=== PATIENT | male | born 1980 | race Caucasian/White ===

== ENCOUNTER 2024-02-09 15:02 | Outpatient (CLI) | payer OTHER, SELFPAY ==
--- NOTE | ~2024-02-09 | MR_ITS ---
EXAMINATION: MR foot RT wo con DATE: 02/09/2024 15:51 INDICATION: Gout with pain, erythema and swelling at the right great toe TECHNIQUE: Magnetic resonance imaging (MRI) of the right fore/mid foot was performed without intraven ous contrast. Sequences included sagittal T1-weighted FSE, sagittal fluid sensitive FSE STIR, coronal PD-weighted FS FSE, coronal T1-weighted FSE, axial PD-weighted FS FSE, and axial PD-weighted FSE. COMPARISON: None FINDINGS: Bone alignment is normal. No fracture. Typical pattern of mild polyarticular osteoarthritis at the fi rst metatarsophalangeal and a few tarsometatarsal and interphalangeal joints. There is marrow edema c entered about the medial aspect of the head of the first proximal phalanx with suggestion of erosions along the lateral nonarticular cortex which could be consistent with provided history of gout. There is small joint effusion versus synovitis at the dorsal and plantar recess of the first interphalange al joint space. 12 x 9 x 6 mm globular region of prominent increased fluid signal along medial side o f the head of the first proximal phalanx which appears downwardly bulge the medial collateral ligamen t complex. There is could represent either extension of the fluid or synovitis from the interphalange al joint space, a separate ganglion cyst or potentially an inflammatory gouty tophus. Differentiation of fluid from inflammatory tissue is limited in the absence of intravenous contrast. Normal marrow s ignal throughout the remainder of the visualized bones. No other joint effusions or other abnormal fl uid collections. Lisfranc ligament complex and the remaining collateral ligament complexes are normal . IMPRESSION: 1. Prominent inflammatory change centered at the medial head of the first interphalangeal joint but a ppears be a small erosion, with small joint effusion and/or synovitis at the adjacent interphalangeal joint space and with 12 x 9 x 6 mm globular region deep to the medial collateral ligament complex. C onstellation of findings would be consistent with either gout or septic arthritis. Reviewed, dictated and finalized at location B. IMPRESSION: 1. Prominent inflammatory change centered at the medial head of the first inter phalangeal joint but appears be a small erosion, with small joint effusion and/ or synovitis at the adjacent interphalangeal joint space and with 12 x 9 x 6 mm globular region deep to the medial collateral ligament complex. Constellation of findings would be consistent with either gout or septic arthritis.
== END 2024-02-09 15:03 ==
PROVIDERS: PCP Podiatrist Foot & Ankle Surgery; Visit Provider Podiatrist Foot & Ankle Surgery
DX: M67.471 Ganglion, right ankle and foot (principal); M10.071 Idiopathic gout, right ankle and foot; D21.21 Benign neoplasm of connective and other soft tissue of right lower limb, including hip
CPT/HCPCS: 73718